=== PATIENT | female | born 2005 | race Caucasian/White ===

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

== ENCOUNTER → 2024-01-04 11:51 | Outpatient (BNVA) | payer BC, MEDICAID, SELFPAY | PROVIDERS: PCP Family Medicine; Visit Provider Nurse Practitioner Family | DX: Z34.90 Encounter for supervision of normal pregnancy, unspecified, unspecified trimester (principal); Z3A.00 Weeks of gestation of pregnancy not specified; R30.0 Dysuria | CPT/HCPCS: 81003; 81025; 87086 ==

== ENCOUNTER → 2024-01-29 13:10 | Outpatient (BNVA) | payer BC, MEDICAID, SELFPAY | PROVIDERS: PCP Family Medicine; Visit Provider Nurse Practitioner Family | DX: K92.1 Melena (principal) | CPT/HCPCS: G0328 ==

== ENCOUNTER → 2024-02-26 14:32 | Outpatient (BNVA) | payer BC, MEDICAID, SELFPAY | PROVIDERS: PCP Family Medicine; Visit Provider Nurse Practitioner Family | DX: Z34.90 Encounter for supervision of normal pregnancy, unspecified, unspecified trimester (principal); Z32.01 Encounter for pregnancy test, result positive; Z3A.00 Weeks of gestation of pregnancy not specified | CPT/HCPCS: 81025; 84702; 85025 ==

== ENCOUNTER 2024-03-28 22:10 | Emergency (ER) | payer BC, MEDICAID, SELFPAY ==
[2024-03-28 22:16] VITALS: BP 111/77; PULSE 77; RESP 16; TEMP 36.7; O2SAT 98; BMI 19.5
--- NOTE | 2024-03-28 22:25 | W.ED.ABDPA2 ---
HPI - Abdominal Pain General: Chief Complaint: Abdominal Pain Stated Complaint: 8 wks Preg ABD Pain Time Seen by Provider: 03/28/24 22:19 History of Present Illness: 19-year-old female comes in today with complaints of abdominal pain mainly in the left pelvic region. Patient believes that she is approximately 8 weeks with her last period being at 21 January. Patient is [address] 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 Patient has a 1-year-old at home. Patient has a history of anemia. Patient denies any bleeding or abnormal vaginal discharge. Related Data Previous Rx's Medication Instructions Recorded cetirizine 10 mg tablet (Zyrtec) 10 mg PO DAILY #90 tabs 01/04/24 sertraline 100 mg tablet 100 mg PO DAILY #30 tabs 01/04/24 vitamin#30 30 mg iron-10 1 cap PO DAILY #100 caps 02/26/24 mg iron-folic acid 1 mg-omg3 capsule Allergies Allergy/AdvReac Type Severity Reaction Status Date / Time brompheniramine Allergy ALGY-Rash Verified 01/04/24 10:39 [From Dimetapp (brompheniramine-PPA)] loratadine Allergy rash Verified 01/04/24 10:39 Penicillins Allergy rash--has Verified 01/04/24 10:39 never taken Keflex phenylpropanolamine Allergy ALGY-Rash Verified 01/04/24 10:39 [From Dimetapp (brompheniramine-PPA)] candy dye Allergy Mild ALGY-Hives Uncoded 01/04/24 10:39 Review of Systems General: Reports: 10 or more systems reviewed and unremarkable except in HPI and below : Reports: pelvic pain PFSH ED PFSH: Medical History Bicornuate uterus Miscarriage No pertinent past medical history Denies diabetes, asthma, hypertension, seizures, DVT/PE PCP: Dr. Abdi Irritable bowel syndrome (IBS) (~2018) constipation--not on any medication controlled with diet Iron deficiency anemia was placed on iron during her --delivered August; stopped Surgical History S/P laparoscopic appendectomy (11/13/20) 10/2020--lapar[place] [facility] [place] History Grandmother Diabetes maternal Grandfather Diabetes maternal Denies family history of Colon cancer Ovarian cancer Heart disease Hyperlipidemia Breast cancer Thyroid disease Stroke Social History Smoking and tobacco/nicotine status: never used tobacco/nicotine Second hand smoke exposure: No Alcohol intake: never Substance/Drug Use: never Lives independently: No Household members: family Marital status: Life Partner Number of children: 1 Current occupational status: employed Do you think of yourself as: Straight/Heterosexual Current gender identity: Female Special carlos needs: No Physical Exam Const: COMMON NORMALS: alert HENMT: COMMON NORMALS: normocephalic HEAD & SCALP: normocephalic THROAT: posterior oropharynx normal Neck/C-Spine: COMMON NORMALS: full ROM Resp: COMMON NORMALS: normal respiratory effort Cardio: COMMON NORMALS: regular rate RATE: regular rate GI: COMMON NORMALS: non-tender Back/Pelvis: COMMON NORMALS: thoracic and lumbar spine normal to inspection Extremity: COMMON NORMALS: no pedal edema Neuro: SENSORIUM/ORIENTATION: Yes alert Skin: COMMON NORMALS: turgor normal GENERAL SKIN EXAM: turgor normal Course Vital Signs: Vital signs: Vital Signs Temperature 98.1 F 03/28/24 22:16 Pulse Rate 70 03/29/24 00:10 Respiratory Rate 16 03/28/24 22:16 Blood Pressure 105/63 03/29/24 00:10 Pulse Oximetry 100 03/29/24 00:10 Oxygen Delivery Me thod Room Air 03/29/24 00:10 MDM - Abdominal Pain Medical Decision Making 19-year-old female comes in today for pelvic pain on the left side and her first trimester of . Patient's. Was at 21 January. Patient has a history of anemia. Abdomen soft nontender. Bowel sounds are active. Vital signs are normal. Differential diagnosis includes not limited to ovarian cyst, urinary tract infection, threatened miscarriage, subchorionic hemorrhage. CBC and CMP were unremarkable. hCG was 193,000. Urinalysis was clean. Ultrasound noted a viable fetus with a heart rate of 157. No obvious abnormalities were noted. Reviewed exam with patient with recommendation for treatment and follow-up. Patient reported understanding. Lab Data 03/28/24 22:28 03/28/24 22: Labs/Radiology: Laboratory Results WBC 11.17 10^3/uL (4.5-13.0) 03/28/24: RBC 4.89 10^6/uL (3.85-5.65) 03/28/24 22: Hgb 13.00 g/dL (12.4-14.8) 03/28/24 22: Hct 41.0 % (36-47) 03/28/24 22: MCV 83.8 fl (85-98) L 03/28/24 22: MCH 26.6 pg (27-33) L 03/28/24: MCHC 31.7 g/dL (30-55) 03/28/24: RDW 15.0 % (12.1-15.1) 03/28/24: Plt Count 223 10^3/cmm (157-399) 03/28/24: MPV 11.8 fL (7.4-10.4) H 03/28/24 22: Neut % (Auto) 73.7 % 03/28/24 22: Lymph % (Auto) 19.9 % 03/28/24 22: Republic % (Auto) 5.4 % 03/28/24: Eos % (Auto) 0.4 % 03/28/24: Baso % (Auto) 0.2 % 03/28/24: Neut # (Auto) 8.23 10^3/uL (1.8-8.0) H 03/28/24: Lymph # (Auto) 2.2 10^3/uL (1.5-6.5) 03/28/24 22: Republic # (Auto) 0.6 10^3/uL (0.2-0.9) 03/28/24: Eos # (Auto) 0.1 10^3/uL (0.0-0.8) 03/28/24: Baso # (Auto) 0.0 10^3/uL (0.0-0.1) 03/28/24: Nucleated RBC % (auto) 0 % 09/05/24 22:28 Nucleated RBCs # 0.0 /100WBC 03/28/24 22:28 Sodium 136 mmol/L (136-145) 03/28/24 22:28 Potassium 4.0 mmol/L (3.5-5.1) 03/28/24 22:28 Chloride 102 mmol/L (98-107) 03/28/24 22:28 Carbon Dioxide 20 mmol/L (22-29) L 03/28/24 22:28 Anion Gap 18.0 (5-19) 03/28/24 22:28 BUN 10 mg/dL (6-20) 03/28/24 22:28 Creatinine 0.5 mg/dL (0.5-0.9) 03/28/24 22:28 GFR Calculation 157.3 mL/min (90-130) H 03/28/24 22:28 Glucose 83 mg/dL (65-115) 03/28/24 22:28 Calculated Osmolality 280 mOsm/kg (285-295) L 03/28/24 22:28 Calcium 9.5 mg/dL (8.5-10.5) 03/28/24 22:28 Total Bilirubin 0.2 mg/dL (0.15-1.2) 03/28/24 22:28 AST 21 U/L (0-32) 03/28/24 22:28 ALT 12 U/L (0-33) 03/28/24 22:28 Alkaline Phosphatase 69 U/L (35-105) 03/28/24 22:28 Total Protein 7.9 g/dL (6.6-8.7) 03/28/24 22:28 Albumin 4.8 g/dL (3.5-5.2) 03/28/24 22:28 Globulin 3.1 g/dL (1.3-4.6) 03/28/24 22:28 Lipase 24 U/L (13-60) 03/28/24 22:28 Ser , Semi-Qnt 984823.00 mIU/mL 03/28/24 22:28 Urine Color Yellow (Yellow) 03/28/24 22:29 Urine Appearance Clear (CLEAR) 03/28/24 22:29 Urine pH 6.5 (5-7) 03/28/24 22:29 Ur Specific Carson 1.009 (1.005-1.030) 03/28/24 22:29 Urine Protein Negative (Negative) 03/28/24 22:29 Urine Glucose (UA) Negative (Normal) 03/28/24 22:29 Urine Ketones Negative (Negative) 03/28/24 22:29 Urine Blood Negative (Negative) 03/28/24 22:29 Urine Nitrate Negative (Negative) 03/28/24 22:29 Urine Bilirubin Negative (Negative) 03/28/24 22:29 Urine Urobilinogen 0.2 mg/dL (Negative) 03/28/24 22:29 Ur Leukocyte Esterase Negative (Negative) 03/28/24 22:29 Amorphous Sediment Not Reportable 03/28/24 22:29 XR interpretation done by ED provider, pending radiology final review Discharge Plan Discharge Condition: Stable Prescriptions: No Action PNV #[id number] 30 mg iron-10 mg iron-1 mg capsule 1 cap PO DAILY Qty: 100 4RF sertraline 100 mg tablet 100 mg PO DAILY Qty: 30 11RF cetirizine [Zyrtec] 10 mg tablet 10 mg PO DAILY Qty: 90 4RF Referrals: Natalia Abdi MD [Primary Care Provider] - Coding Level of Care Code ED Machine Straw Hat Presser for Minal Cox
--- NOTE | 2024-03-28 22:30 | USR_ITS ---
PROCEDURE INFORMATION: Exam: US First Trimester, Transabdominal and US , Transvaginal Exam date and time: 03/28/2024 11:30 PM Age: 19 years old Clinical indication: complicated by abdominal or pelvic pain; Left lower quadrant; First trimester (<14 weeks 0 days); Gestational age or lmp: 8w 1d by ev; ; Patient HX: G5-p1-a3-l1 presenting with left adnexal pain, no vaginal bleeding. ; Additional info: Left inguinal pain, 8 weeks LABS AND CLINICAL REPORTS: Choriogonadotropin in serum (Serum HCG): 623534 mIU/mL Last menstrual period start date: 01/26/2024 Gestational age (Established): 8 w 6 d Estimated due date (Established): 11/01/2024 TECHNIQUE: Imaging protocol: Real-time transabdominal obstetrical ultrasound of the maternal pelvis and a first trimester , less than 14 weeks 0 days, with image documentation. Transvaginal imaging was used for better evaluation of the fetus, adnexa, and/or cervix. COMPARISON: US OB >= 14 weeks fetus [id number] 04/15/2022 12:08 PM FINDINGS: GESTATION: Gestation: Intrauterine gestation is visualized. pole is visualized. Yolk sac is visualized. Embryonic/ heart rate: 157 bpm Extra-embryonic membranes/Placenta: Unremarkable. No subchorionic bleed. Amniotic/Chorionic fluid: Amniotic and extra-amniotic fluid are normal for gestational age. BIOMETRY: Gestational age (AUA): 8 w 1 d Estimated due date (AUA): 11/06/2024 [place] rump length (CRL): 17.2 mm. EGA (CRL) is 8 w 1 d MATERNAL: Uterus: Uterus measures 10.88 cm x 6.75 cm x 6.54 cm. Region of myometrial heterogeneity/microcystic spaces adjacent to the gestational sac seen on 1 image (series 1, image 280). Cervix: Unremarkable. Endocervical canal is closed. Right ovary/adnexa: Right ovary measures 3.2 cm x 2.8 cm x 1.4 cm. Right ovarian volume is 6.9 mL. Probable corpus luteum. Left ovary/adnexa: Left ovary measures 2.2 cm x 2.5 cm x 1.5 cm. Left ovarian volume is 4.4 mL. Intraperitoneal space: No intraperitoneal free fluid. US/US OB <= 14 weeks fetus [id number] IMPRESSION: 1. Single living intrauterine at 8 weeks and 1 day by ultrasound. 2. Incompletely imaged and possible region of myometrial heterogeneity/microcystic spaces adjacent to the gestational sac. This is of unclear clinical significance. Attention on follow-up exam.
[2024-03-28 22:33] LABS: Basophils % 0.2 %; Eosinophils # 0.1 10^3/uL (0.0-0.8); Eosinophils % 0.4 %; Lymphocytes # 2.2 10^3/uL (1.5-6.5); Lymphocytes % 19.9 %; Mean Corpuscular HGB Conc 31.7 g/dL (30-55); Mean Corpuscular Hemoglobin 26.6 pg (27-33); Mean Corpuscular Volume 83.8 fl (85-98); Mean Platelet Volume 11.8 fL (7.4-10.4); Monocytes # 0.6 10^3/uL (0.2-0.9); Monocytes % 5.4 %; Neutrophils # 8.23 10^3/uL (1.8-8.0); Neutrophils % 73.7 %; Nucleated Red Blood Cells % 0 %; Platelet Count 223 10^3/cmm (157-399); Red Blood Count 4.89 10^6/uL (3.85-5.65); White Blood Count 11.17 10^3/uL (4.5-13.0)
[2024-03-28 22:36] LABS: Bilirubin Urine Negative (Negative); Blood Urine Negative (Negative); Charge for UA Resulting for Rev; Glucose Urine UA Negative (Normal); Ketones Urine Negative (Negative); Leukocyte Esterase Urine Negative (Negative); Nitrate Urine Negative (Negative); Protein Urine Negative (Negative); Specific Gravity, Urine 1.009 (1.005-1.030); Urine Appearance Clear (CLEAR); Urine Color Yellow (Yellow); Urobilinogen Urine 0.2 mg/dL (Negative); pH Urine 6.5 (5-7)
[2024-03-28 22:42] VITALS: BP 109/61; PULSE 83; O2SAT 100
[2024-03-28 23:05] LABS: Alanine Aminotransferase 12 U/L (0-33); Albumin Level 4.8 g/dL (3.5-5.2); Alkaline Phosphatase 69 U/L (35-105); Blood Urea Nitrogen 10 mg/dL (6-20); Calcium 9.5 mg/dL (8.5-10.5); Carbon Dioxide 20 mmol/L (22-29); Chloride 102 mmol/L (98-107); Creatinine Clr Calc Pharmacy 145.6277; Globulin 3.1 g/dL (1.3-4.6); Glomerular Filtration Rate 157.3 mL/min (90-130); Glucose 83 mg/dL (65-115); Lipase 24 U/L (13-60); Osmolality Calculated 280 mOsm/kg (285-295); Sodium 136 mmol/L (136-145); Total Bilirubin 0.2 mg/dL (0.15-1.2); Total Protein 7.9 g/dL (6.6-8.7)
[2024-03-28 23:11] LABS: Aspartate Amino Transferase 21 U/L (0-32)
[2024-03-28 23:27] VITALS: BP 105/68; PULSE 73; O2SAT 100
[2024-03-29 00:10] VITALS: BP 105/63; PULSE 70; O2SAT 100
[2024-03-29 00:23] VITALS: BP 107/72; PULSE 68; O2SAT 100
== END 2024-03-29 00:27 | disposition home or self-care (01) ==
PROVIDERS: Emergency Provider Nurse Practitioner Family; PCP Family Medicine
DX: R10.2 Pelvic and perineal pain (principal)
CPT/HCPCS: 76801; 80053; 81003; 81015; 83690; 84702; 85025; 99284

== ENCOUNTER 2024-05-13 08:40 | Outpatient (CLI) | payer BC, MEDICAID, SELFPAY ==
--- NOTE | 2024-05-13 08:44 | USR_ITS ---
PROCEDURE INFORMATION: Exam: US , Limited Exam date and time: 05/13/2024 8:51 AM Age: 19 years old Clinical indication: Screening exam; Routine US, uterus; Additional info: ? Myometrial change LABS AND CLINICAL REPORTS: Gestational age (Established): 15 w 0 d Estimated due date (Established): 11/04/2024 TECHNIQUE: Imaging protocol: Real-time ultrasound of the maternal uterus with image documentation. Exam focused on the clinical indication. COMPARISON: US OB <= 14 weeks fetus [id number] 03/28/2024 11:30 PM FINDINGS: Gestation: Single live intrauterine gestation. heart rate: 144 bpm. presentation and position: Vertex. Placenta: Anterior. MATERNAL: Cervix: Unremarkable closed cervix measuring 3.8 cm in length. US/US OB limited [id number] IMPRESSION: Single live intrauterine gestation.
== END 2024-05-13 08:41 | disposition home or self-care (01) ==
LOC: RAD 08:41
PROVIDERS: PCP Family Medicine; Visit Provider Family Medicine
DX: O28.3 Abnormal ultrasonic finding on antenatal screening of mother (principal)
CPT/HCPCS: 76815

== ENCOUNTER → 2024-06-03 14:56 | Outpatient (BNVA) | payer BC, MEDICAID, SELFPAY | PROVIDERS: PCP Nurse Practitioner Family; Visit Provider Nurse Practitioner Family | DX: R50.9 Fever, unspecified (principal) | CPT/HCPCS: 87400; 87426 ==

== ENCOUNTER 2024-06-17 14:04 | Outpatient (CLI) | payer BC, MEDICAID, SELFPAY ==
--- NOTE | 2024-06-17 14:08 | USR_ITS ---
PROCEDURE INFORMATION: Exam: US After First Trimester, Transabdominal Exam date and time: 06/17/2024 2:15 PM Age: 19 years old Clinical indication: Screening exam; Routine US, uterus; Additional info: Anatomy check/second trimester TECHNIQUE: Imaging protocol: Real-time transabdominal obstetrical ultrasound of the maternal pelvis and a second or third trimester with image documentation. COMPARISON: US OB limited [id number] 05/13/2024 8:51 AM FINDINGS: Gestation: Single live intrauterine gestation. heart rate: 150 bpm. presentation and position: Transverse lie. Restaging images suggest Placenta: Unremarkable. No subchorionic bleed. Placenta is anterior. Amniotic fluid (Qualitative): Amniotic fluid is normal for gestational age. Amniotic fluid index: 13.67 cm. ANATOMY: midline falx: Normal cerebellum: Normal lateral ventricles: Normal cisterna magna: Normal choroid plexus: Normal face: Normal heart four-chamber view, heart size and position: Normal heart right ventricular outflow tract: Normal heart left ventricular outflow tract: Normal diaphragm: Normal kidneys: Normal stomach: Normal urinary bladder: Normal spine: No abnormality identified in the partially visualized spine Umbilical cord and insertion: Normal. Normal 3 vessel cord upper limbs: No abnormality identified lower limbs: No abnormality identified BIOMETRY: Gestational age (AUA): 19 weeks 2 days Estimated due date (AUA): 11/08/2024 Estimated weight: 321.63 g. EFW by AC, BPD, FL, HC, [place] 1985, 41% percentile Biparietal diameter (BPD): 4.39 cm. EGA (BPD) is 19 w 2 d. 21 % percentile Head circumference (HC): 17.17 cm. EGA (HC) is 19 w 5 d. 30.4 % percentile Abdominal circumference (AC): 14.7 cm. EGA (AC) is 20 w 0 d. 43.9 % percentile Femur length (FL): 3.2 cm. EGA (FL) is 20 w 0 d. 40.8 % percentile HC/AC: 1.17. (Normal range: 1.08 - 1.26) FL/HC: 18.64. (Normal range: 16.4 - 18.94) FL/BPD: 72.89 FL/AC: 21.77 MATERNAL: Uterus: Unremarkable. Cervix: Unremarkable. Cervix is closed. Right ovary/adnexa: Obscured by lack of adequate acoustic window. Left ovary/adnexa: Obscured by lack of adequate acoustic window. Intraperitoneal space: No intraperitoneal free fluid. US/US OB >= 14 weeks fetus [id number] IMPRESSION: Single live intrauterine gestation with estimated age of 19 weeks 3 days and weight of 321.63 g
== END 2024-06-17 14:05 | disposition home or self-care (01) ==
LOC: RAD 14:05
PROVIDERS: PCP Nurse Practitioner Family; Visit Provider Family Medicine
DX: Z34.82 Encounter for supervision of other normal pregnancy, second trimester (principal)
CPT/HCPCS: 76805

== ENCOUNTER 2024-07-12 21:19 | Emergency (ER) | payer BC, MEDICAID, SELFPAY ==
--- NOTE | 2024-07-12 21:22 | W.ED.GENADLT ---
HPI - General Adult General: Chief complaint: Extremity Injury, Lower Stated complaint: LEG PAIN Time Seen by Provider: 07/12/24 21:22 History of Present Illness: 19-year-old female presents to the emergency room with complaint of leg pain. Patient presents by EMS. She has not had any chest pain or shortness of breath she previously has had blood clots. She has not had any swelling in her legs she has been on Lovenox for the last 8 days. She is currently . She had called her OB doctor and the nurse at the doctor's office advised her to come to the emergency room. No shortness of breath no chest pain. Reviewing her records she did previously have a PE with no DVT at that time choosing using hormonal control just thought to be the precipitating factor. Associated symptoms: Deny chest pain, dyspnea or rash Related Data Previous Rx's Medication Instructions Recorded cetirizine 10 mg tablet (Zyrtec) 10 mg PO DAILY #90 tabs 01/04/24 sertraline 100 mg tablet 100 mg PO DAILY #30 tabs 01/04/24 vitamin#30 30 mg iron-10 1 cap PO DAILY #100 caps 02/26/24 mg iron-folic acid 1 mg-omg3 capsule promethazine 12.5 mg tablet 12.5 mg PO TID PRN nausea and 06/03/24 vomiting #10 tabs Allergies Allergy/AdvReac Type Severity Reaction Status Date / Time brompheniramine Allergy ALGY-Rash Verified 01/04/24 10:39 [From Dimetapp (brompheniramine-PPA)] loratadine Allergy rash Verified 01/04/24 10:39 Penicillins Allergy rash--has Verified 01/04/24 10:39 never taken Keflex phenylpropanolamine Allergy ALGY-Rash Verified 01/04/24 10:39 [From Dimetapp (brompheniramine-PPA)] candy dye Allergy Mild ALGY-Hives Uncoded 01/04/24 10:39 Review of Systems Const: Denies: fever(s) or chills Card: Denies: chest pain Resp: Denies: dyspnea GI: Denies: abdominal pain : Denies: dysuria, urinary frequency or urinary urgency Musc: Denies: neck pain or back pain Skin/Breast: Denies: rash PFSH ED PFSH: Medical History Bicornuate uterus Miscarriage No pertinent past medical history Denies diabetes, asthma, hypertension, seizures, DVT/PE PCP: Dr. Abdi Irritable bowel syndrome (IBS) (~2018) constipation--not on any medication controlled with diet Iron deficiency anemia was placed on iron during her --delivered August; stopped Surgical History S/P laparoscopic appendectomy (11/13/20) 10/2020--[place] [facility] [place] History Grandmother Diabetes maternal Grandfather Diabetes maternal Denies family history of Colon cancer Ovarian cancer Heart disease Hyperlipidemia Breast cancer Thyroid disease Stroke Social History Smoking and tobacco/nicotine status: never used tobacco/nicotine Second hand smoke exposure: No Alcohol intake: never Substance/Drug Use: never Lives independently: No Household members: family Marital status: Life Partner Number of children: 1 Current occupational status: employed Do you think of yourself as: Straight/Heterosexual Current gender identity: Female Special carlos needs: No Physical Exam Const: COMMON NORMALS: no acute distress GENERAL APPEARANCE: cooperative and comfortable ORIENTATION/CONSCIOUSNESS: Yes awake, Yes oriented to person, Yes oriented to place and Yes oriented to time HENMT: COMMON NORMALS: normocephalic, atraumatic and hearing grossly normal bilaterally HEAD & SCALP: normocephalic and atraumatic Resp: COMMON NORMALS: normal respiratory effort, No retractions, No use of accessory muscles and clear to auscultation bilaterally AUSCULTATION: clear to auscultation bilaterally Cardio: COMMON NORMALS: regular rate, regular rhythm and No murmurs present (Cardio) RATE: regular rate RHYTHM: regular rhythm Extremity: COMMON NORMALS: normal to inspection, capillary refill normal, no clubbing, cyanosis or edema, no calf tenderness and no pedal edema Neuro: SENSORIUM/ORIENTATION: Yes oriented to person, Yes oriented to place and Yes oriented to time Skin: COMMON NORMALS: no rashes or lesions noted GENERAL SKIN EXAM: no rashes or lesions noted Course Vital Signs: Vital signs: Vital Signs Temperature 98 F 07/12/24 21:24 Pulse Rate 88 07/12/24 22:55 Respiratory Rate 20 H 07/12/24 21:24 Blood Pressure 130/75 07/12/24 22:55 Pulse Oximetry 99 07/12/24 22:55 MDM - General Adult Medical Decision Making Exam unremarkable laboratory test unremarkable patient is not hypoxic. No tachycardia. She is currently on Lovenox. No pain with palpation of the extremities Homans negative and there is no edema. Discharge home continue current treatment plans. Medical Records I reviewed the patient's medical records. Lab Data I reviewed the patient's lab results. 07/12/24 21:53 07/12/24 21:53 Laboratory Results WBC 8.99 10^3/uL (4.5-13.0) 07/12/24 21:53 RBC 3.90 10^6/uL (3.85-5.65) 07/12/24 21:53 Hgb 10.50 g/dL (12.4-14.8) L 07/12/24 21:53 Hct 33.0 % (36-47) L 07/12/24 21:53 MCV 84.6 fl (85-98) L 07/12/24 21:53 MCH 26.9 pg (27-33) L 07/12/24 21:53 MCHC 31.8 g/dL (30-55) 07/12/24 21:53 RDW 14.4 % (12.1-15.1) 07/12/24 21:53 Plt Count 200 10^3/cmm (157-399) 07/12/24 21:53 MPV 12.3 fL (7.4-10.4) H 07/12/24 21:53 Neut % (Auto) 76.7 % 07/12/24 21:53 Lymph % (Auto) 15.2 % 07/12/24 21:53 [place] % (Auto) 6.8 % 07/12/24 21:53 Eos % (Auto) 0.7 % 07/12/24 21:53 Baso % (Auto) 0.2 % 07/12/24 21:53 Neut # (Auto) 6.89 10^3/uL (1.8-8.0) 07/12/24 21:53 Lymph # (Auto) 1.4 10^3/uL (1.5-6.5) L 07/12/24 21:53 [place] # (Auto) 0.6 10^3/uL (0.2-0.9) 07/12/24 21:53 Eos # (Auto) 0.1 10^3/uL (0.0-0.8) 07/12/24 21:53 Baso # (Auto) 0.0 10^3/uL (0.0-0.1) 07/12/24 21:53 Nucleated RBC % (auto) 0 % 07/12/24 21:53 Nucleated RBCs # 0.0 /100WBC 07/12/24 21:53 Sodium 135 mmol/L (136-145) L 07/12/24 21:53 Potassium 3.9 mmol/L (3.5-5.1) 07/12/24 21:53 Chloride 105 mmol/L (98-107) 07/12/24 21:53 Carbon Dioxide 22 mmol/L (22-29) 07/12/24 21:53 Anion Gap 11.9 (5-19) 07/12/24 21:53 BUN 7 mg/dL (6-20) 07/12/24 21:53 Creatinine 0.5 mg/dL (0.5-0.9) 07/12/24 21:53 GFR Calculation 157.3 mL/min (90-130) H 07/12/24 21:53 Glucose 86 mg/dL (65-115) 07/12/24 21:53 Calculated Osmolality 277 mOsm/kg (285-295) L 07/12/24 21:53 Calcium 8.9 mg/dL (8.5-10.5) 07/12/24 21:53 Total Bilirubin 0.2 mg/dL (0.15-1.2) 07/12/24 21:53 AST 17 U/L (0-32) 07/12/24 21:53 ALT 8 U/L (0-33) 07/12/24 21:53 Alkaline Phosphatase 78 U/L (35-105) 07/12/24 21:53 Total Protein 6.8 g/dL (6.6-8.7) 07/12/24 21:53 Albumin 3.5 g/dL (3.5-5.2) 07/12/24 21:53 Globulin 3.3 g/dL (1.3-4.6) 07/12/24 21:53 No radiology studies performed this visit Discharge Plan Discharge Patient Disposition: Home Clinical Impression: Bilateral leg pain Condition: Stable Prescriptions: No Action PNV #[id number] 30 mg iron-10 mg iron-1 mg capsule 1 cap PO DAILY Qty: 100 4RF sertraline 100 mg tablet 100 mg PO DAILY Qty: 30 11RF cetirizine [Zyrtec] 10 mg tablet 10 mg PO DAILY Qty: 90 4RF promethazine 12.5 mg tablet 12.5 mg PO TID PRN (Reason: nausea and vomiting) Qty: 10 0RF Discharge Orders: Discharge ED (Routine); Ordered 07/12/24 Ordered By: Diogenes Johnston Referrals: Christina Grimes FNP [Primary Care Provider] - Discharge Diet: Usual diet Discharge Activity: Increase activity as tolerated Patient Instructions: Opioid Safety, Pain Management Activity Restrictions/Additional Instructions: Thank you for choosing [facility] for your healthcare needs today. It is very important that you follow up as instructed or that you return to the Emergency Department should you have concerns or if your condition changes or worsens in any way. You were seen in the emergency room with complaint of leg pain. Your exam was negative there is no sign of swelling no suggestion of DVT currently on Lovenox which is the treatment for DVT if you did have 1. Clinically there is no sign of 1 at this time recommend continuing your current treatments and follow-up with your primary care doctor. Stand Alone Forms: Work/School Release Coding Level of Care Code ED Chief Of Vital Statistics for Minal Cox
[2024-07-12 21:24] VITALS: BP 127/72; PULSE 84; RESP 20; TEMP 36.6; O2SAT 98; BMI 21.9
[2024-07-12 22:00] LABS: Basophils % 0.2 %; Eosinophils # 0.1 10^3/uL (0.0-0.8); Eosinophils % 0.7 %; Lymphocytes # 1.4 10^3/uL (1.5-6.5); Lymphocytes % 15.2 %; Mean Corpuscular HGB Conc 31.8 g/dL (30-55); Mean Corpuscular Hemoglobin 26.9 pg (27-33); Mean Corpuscular Volume 84.6 fl (85-98); Mean Platelet Volume 12.3 fL (7.4-10.4); Monocytes # 0.6 10^3/uL (0.2-0.9); Monocytes % 6.8 %; Neutrophils # 6.89 10^3/uL (1.8-8.0); Neutrophils % 76.7 %; Nucleated Red Blood Cells % 0 %; Platelet Count 200 10^3/cmm (157-399); Red Cell Distribution Width 14.4 % (12.1-15.1); White Blood Count 8.99 10^3/uL (4.5-13.0)
[2024-07-12 22:21] LABS: Alanine Aminotransferase 8 U/L (0-33); Albumin Level 3.5 g/dL (3.5-5.2); Alkaline Phosphatase 78 U/L (35-105); Anion Gap 11.9 (5-19); Aspartate Amino Transferase 17 U/L (0-32); Blood Urea Nitrogen 7 mg/dL (6-20); Calcium 8.9 mg/dL (8.5-10.5); Carbon Dioxide 22 mmol/L (22-29); Chloride 105 mmol/L (98-107); Creatinine Clr Calc Pharmacy 152.8243; Globulin 3.3 g/dL (1.3-4.6); Glomerular Filtration Rate 157.3 mL/min (90-130); Glucose 86 mg/dL (65-115); Osmolality Calculated 277 mOsm/kg (285-295); Potassium 3.9 mmol/L (3.5-5.1); Sodium 135 mmol/L (136-145); Total Bilirubin 0.2 mg/dL (0.15-1.2); Total Protein 6.8 g/dL (6.6-8.7)
[2024-07-12 22:55] VITALS: BP 130/75; PULSE 88; O2SAT 99
== END 2024-07-12 22:56 | disposition home or self-care (01) ==
PROVIDERS: Emergency Provider Family Medicine; PCP Nurse Practitioner Family
DX: M79.604 Pain in right leg (principal); M79.605 Pain in left leg
CPT/HCPCS: 36415; 80053; 85025; 99283

== ENCOUNTER 2024-08-18 23:15 | Outpatient (CLI) | payer BC, MEDICAID, SELFPAY ==
[2024-08-18 23:17] VITALS: BMI 23.6
[2024-08-18 23:19] VITALS: BP 116/72; PULSE 78
[2024-08-18 23:20] VITALS: TEMP 35.6
[2024-08-18 23:34] VITALS: BP 106/61; PULSE 84
[2024-08-18 23:49] VITALS: BP 106/66; PULSE 86
[2024-08-19 00:04] VITALS: BP 104/65; PULSE 102
[2024-08-19 00:19] VITALS: BP 110/72; PULSE 102
--- NOTE | 2024-08-19 00:24 | PC.NURSE ---
Patient reports that pain is about 3-4/10 and a 5/10 when it's at its worst but denies having any pain since she arrived at the hospital.
[2024-08-19 00:34] VITALS: BP 110/72; PULSE 98; RESP 16; O2SAT 99
== END 2024-08-19 00:36 | disposition home or self-care (01) ==
LOC: OPOB 23:15 → OBGYN 23:16
PROVIDERS: PCP Nurse Practitioner Family; Visit Provider Family Medicine
DX: O26.899 Other specified pregnancy related conditions, unspecified trimester (principal); Z3A.00 Weeks of gestation of pregnancy not specified; R10.9 Unspecified abdominal pain
CPT/HCPCS: 59025; 99211

== ENCOUNTER 2024-09-13 15:05 | Outpatient (CLI) | payer BC, MEDICAID, SELFPAY ==
[2024-09-13] VITALS (10 sets, daily range): BP systolic 101–125; BP diastolic 61–71; PULSE 99–141; BMI 23.2
== END 2024-09-13 17:43 | disposition home or self-care (01) ==
LOC: OPOB 15:10 → OBGYN 15:11 → OPOB 15:18
PROVIDERS: Absent Provider Family Medicine; Family Provider Family Medicine; PCP Nurse Practitioner Family; Visit Provider Family Medicine
DX: O26.899 Other specified pregnancy related conditions, unspecified trimester (principal); Z3A.00 Weeks of gestation of pregnancy not specified; R10.9 Unspecified abdominal pain; N89.8 Other specified noninflammatory disorders of vagina
CPT/HCPCS: 59025; 99211

== ENCOUNTER 2024-09-30 14:20 | Outpatient (CLI) | payer BC, MEDICAID, SELFPAY ==
[2024-09-30] VITALS (64 sets, daily range): BP systolic 93–125; BP diastolic 53–84; PULSE 74–141; RESP 16; O2SAT 94–100; BMI 23.9
[2024-09-30 15:34] LABS: Bilirubin Urine Negative (Negative); Blood Urine Negative (Negative); Glucose Urine UA Negative (Normal); Ketones Urine Negative (Negative); Leukocyte Esterase Urine 2+ (Negative); Nitrate Urine Negative (Negative); Protein Urine Negative (Negative); Specific Gravity, Urine 1.005 (1.005-1.030); Urine Appearance Cloudy (CLEAR); Urine Color Yellow (Yellow); Urobilinogen Urine 0.2 mg/dL (Negative)
[2024-09-30 15:39] LABS: Bacteria Urine 3+ /hpf; Hyaline Casts Urine 2.46 /lpf; RBC Urine 0-2 /hpf (0-2); WBC Urine 51-100 /hpf (0-5)
[2024-09-30] MEDS: acetaminophen 500 mg Tablet 1000 MG PO (15:40)
[2024-09-30 15:43] LABS: Add Urine Culture? Yes
[2024-09-30 16:24] LABS: Basophils % 0.2 %; Eosinophils # 0.1 10^3/uL (0.0-0.8); Eosinophils % 0.6 %; Hematocrit 29.2 % (36-47); Lymphocytes # 1.6 10^3/uL (1.5-6.5); Lymphocytes % 18.3 %; Mean Corpuscular HGB Conc 30.5 g/dL (30-55); Mean Corpuscular Hemoglobin 24.7 pg (27-33); Mean Corpuscular Volume 80.9 fl (85-98); Mean Platelet Volume 13.2 fL (7.4-10.4); Monocytes # 0.5 10^3/uL (0.2-0.9); Monocytes % 5.7 %; Neutrophils # 6.72 10^3/uL (1.8-8.0); Neutrophils % 74.8 %; Nucleated Red Blood Cells % 0 %; Platelet Count 174 10^3/cmm (157-399); Red Blood Count 3.61 10^6/uL (3.85-5.65); Red Cell Distribution Width 13.4 % (12.1-15.1); White Blood Count 8.98 10^3/uL (4.5-13.0)
[2024-09-30] MEDS: lactated ringers 1,000 ML 999 ML IV (16:24)
[2024-09-30 16:41] LABS: Slide Review Slide Review Perform
[2024-09-30 16:42] LABS: Alanine Aminotransferase 6 U/L (0-33); Albumin Level 3.4 g/dL (3.5-5.2); Alkaline Phosphatase 180 U/L (35-105); Aspartate Amino Transferase 17 U/L (0-32); Blood Urea Nitrogen 4 mg/dL (6-20); Calcium 8.8 mg/dL (8.5-10.5); Carbon Dioxide 22 mmol/L (22-29); Chloride 105 mmol/L (98-107); Creatinine Clr Calc Pharmacy 152.5138; Globulin 2.8 g/dL (1.3-4.6); Glomerular Filtration Rate 157.3 mL/min (90-130); Glucose 73 mg/dL (65-115); Osmolality Calculated 279 mOsm/kg (285-295); Sodium 137 mmol/L (136-145); Total Bilirubin 0.2 mg/dL (0.15-1.2); Total Protein 6.2 g/dL (6.6-8.7)
[2024-09-30 16:49] LABS: Anion Gap 13.8 (5-19); Potassium 3.8 mmol/L (3.5-5.1)
--- NOTE | 2024-09-30 17:58 | PM.OBTRLD ---
OB L&D Triage Visit Information: Date of evaluation: 10/02/24 Comments/Additional reason(s) for visit: 19yo at 35w0d presenting for complaints of abdominal pain/contractions and headache. Reports abdominal pain started 2 days ago and has been both constant in the lower abdomen and intermittently worsening. States she took it easy yesterday evening and the pain went away but then came back this morning. She denies LOF, vaginal bleeding, and reports good movement. She reports for headache she had tried tylenol but did not improve significantly. Denies RUQ pain, LE edema. Denies dyspnea, chest pain, palpitations. Denies change in vaginal discharge but does report some sensitivity to wiping. Denies dysuria. Not a great historian as there is somewhat inconsistent report given to nursing versus myself. Evaluation: station: -3 Laboratory results: Laboratory Tests 09/30/24 09/30/24 09/30/24 14:55 16:07 16:22 WBC 8.98 RBC 3.61 L Hgb 8.90 L Hct 29.2 L MCV 80.9 L MCH 24.7 L MCHC 30.5 RDW 13.4 Plt Count 174 MPV 13.2 H Neut % (Auto) 74.8 Lymph % (Auto) 18.3 [place] % (Auto) 5.7 Eos % (Auto) 0.6 Baso % (Auto) 0.2 Neut # (Auto) 6.72 Lymph # (Auto) 1.6 [place] # (Auto) 0.5 Eos # (Auto) 0.1 Baso # (Auto) 0.0 Nucleated RBC % (a uto) 0 Nucleated RBCs # 0.0 PT Cancelled INR Cancelled APTT Cancelled Fibrinogen Cancelled Fibrin Degrad Prod ucts Cancelled D-Dimer Cancelled Sodium 137 Potassium 3.8 Chloride 105 Carbon Dioxide 22 Anion Gap 13.8 BUN 4 L Creatinine 0.5 GFR Calculation 157.3 H Glucose 73 Calculated Osmolal ity 279 L Calcium 8.8 Total Bilirubin 0.2 AST 17 ALT 6 Alkaline Phosphata se 180 H Total Protein 6.2 L Albumin 3.4 L Globulin 2.8 Urine Color Yellow Urine Appearance Cloudy A Urine pH 7.0 Ur Specific Gravit y 1.005 Urine Protein Negative Urine Glucose (UA) Negative Urine Ketones Negative Urine Blood Negative Urine Nitrate Negative Urine Bilirubin Negative Urine Urobilinogen 0.2 Ur Leukocyte Neeta ase 2+ A Urine RBC 0-2 Urine WBC 51-100 H Ur Squamous Epith Cells 11-20 H Amorphous Sediment Not Reportable Urine Bacteria 3+ H Hyaline Casts 2.46 Vital signs: Vital Signs - 24 hr 09/30/24 14:32 09/30/24 14:47 09/30/24 14:49 Pulse Rate 106 H 125 H 111 H Blood Pressure 123/84 112/70 Pulse Oximetry 100 09/30/24 14:54 09/30/24 14:59 09/30/24 14:59 Pulse Rate 113 H 141 H Blood Pressure Pulse Oximetry 100 100 09/30/24 15:02 09/30/24 15:02 09/30/24 15:04 Pulse Rate 137 H Blood Pressure 115/75 Pulse Oximetry 100 09/30/24 15:04 09/30/24 15:09 09/30/24 15:09 Pulse Rate 99 137 H Blood Pressure Pulse Oximetry 100 09/30/24 15:14 09/30/24 15:14 09/30/24 15:17 Pulse Rate 122 H Blood Pressure 110/70 Pulse Oximetry 100 09/30/24 15:17 09/30/24 15:19 09/30/24 15:19 Pulse Rate 137 H 110 H Blood Pressure Pulse Oximetry 100 09/30/24 15:24 09/30/24 15:24 09/30/24 15:29 Pulse Rate 127 H Blood Pressure Pulse Oximetry 100 100 09/30/24 15:29 09/30/24 15:32 09/30/24 15:32 Pulse Rate 118 H 104 H Blood Pressure 108/68 Pulse Oximetry 09/30/24 15:34 09/30/24 15:34 09/30/24 15:39 Pulse Rate 113 H Blood Pressure Pulse Oximetry 99 100 09/30/24 15:39 09/30/24 15:44 09/30/24 15:44 Pulse Rate 109 H 117 H Blood Pressure Pulse Oximetry 99 09/30/24 15:47 09/30/24 15:47 09/30/24 15:49 Pulse Rate 96 Blood Pressure 108/65 Pulse Oximetry 99 09/30/24 15:49 09/30/24 15:54 09/30/24 15:54 Pulse Rate 110 H 104 H Blood Pressure Pulse Oximetry 100 09/30/24 15:59 09/30/24 15:59 09/30/24 16:02 Pulse Rate 112 H Blood Pressure 102/66 Pulse Oximetry 100 09/30/24 16:02 09/30/24 16:04 09/30/24 16:04 Pulse Rate 107 H 116 H Blood Pressure Pulse Oximetry 100 09/30/24 16:09 09/30/24 16:09 09/30/24 16:14 Pulse Rate 113 H Blood Pressure Pulse Oximetry 100 99 09/30/24 16:14 09/30/24 16:17 09/30/24 16:17 Pulse Rate 89 76 Blood Pressure 104/65 Pulse Oximetry 09/30/24 16:19 09/30/24 16:19 09/30/24 16:24 Pulse Rate 111 H Blood Pressure Pulse Oximetry 100 100 09/30/24 16:24 09/30/24 16:29 09/30/24 16:29 Pulse Rate 92 88 Blood Pressure Pulse Oximetry 100 09/30/24 16:32 09/30/24 16:32 09/30/24 16:34 Pulse Rate 99 Blood Pressure 107/66 Pulse Oximetry 100 09/30/24 16:34 09/30/24 16:39 09/30/24 16:39 Pulse Rate 97 82 Blood Pressure Pulse Oximetry 100 09/30/24 16:44 09/30/24 16:44 09/30/24 16:49 Pulse Rate 87 Blood Pressure 103/59 Pulse Oximetry 100 09/30/24 16:49 09/30/24 16:49 09/30/24 16:49 Pulse Rate 97 85 Blood Pressure Pulse Oximetry 100 09/30/24 16:54 09/30/24 16:54 09/30/24 16:59 Pulse Rate 95 Blood Pressure Pulse Oximetry 100 100 09/30/24 16:59 09/30/24 17:02 09/30/24 17:02 Pulse Rate 96 87 Blood Pressure 102/62 Pulse Oximetry 09/30/24 17:04 09/30/24 17:04 09/30/24 17:09 Pulse Rate 87 Blood Pressure Pulse Oximetry 100 100 09/30/24 17:09 09/30/24 17:14 09/30/24 17:14 Pulse Rate 105 H 98 Blood Pressure Pulse Oximetry 100 09/30/24 17:19 09/30/24 17:19 09/30/24 17:19 Pulse Rate 107 H Blood Pressure 110/68 Pulse Oximetry 100 09/30/24 17:19 09/30/24 17:24 09/30/24 17:24 Pulse Rate 96 96 Blood Pressure Pulse Oximetry 100 09/30/24 17:27 09/30/24 17:27 09/30/24 17:29 Pulse Rate 88 Blood Pressure Pulse Oximetry 94 100 09/30/24 17:29 09/30/24 17:32 09/30/24 17:32 Pulse Rate 99 87 Blood Pressure 102/66 Pulse Oximetry 09/30/24 17:34 09/30/24 17:34 09/30/24 17:39 Pulse Rate 96 Blood Pressure Pulse Oximetry 100 100 09/30/24 17:39 09/30/24 17:44 09/30/24 17:44 Pulse Rate 92 91 Blood Pressure Pulse Oximetry 100 09/30/24 17:49 09/30/24 17:49 09/30/24 17:49 Pulse Rate 104 H Blood Pressure 125/60 Pulse Oximetry 100 09/30/24 17:54 09/30/24 17:54 Pulse Rate 114 H Blood Pressure Pulse Oximetry 100 Comments: NST reactive Gen: alert, oriented, NAD Lung: CTAB, no respiratory distress or increased work of breathing Cardiac: RRR, no murmurs, no LE edema- no calf pain or tenderness Abdomen: no rebound or guarding, mild TTP suprapubic, negative CVA tenderness bilaterally Final Diagnosis Final Diagnosis (1) Cystitis: Plan: Given 1 dose Rocephin here and will send prescription home for cephalexin. Status: Acute Code(s): N30.90 - Cystitis, unspecified without hematuria (2) contractions: Plan: Initially without contractions on toco however following initial SVE of 2.5/35/-3 noted contractions every 2 to 3 minutes consistently. She was then monitored over approximately 4-hour period without progressive dilation or effacement. She will be discharged home with strict return precautions and discussed light activity over and in the next 2 to 3 days. She will follow-up in clinic on , 10/03/2024. Status: Acute Code(s): O47.00 - False labor before 37 completed weeks of gestation, unspecified trimester (3) Anemia: Plan: Initially with some tachycardia but improved with fluid bolus. She will be continued on home iron supplementation. Headache improved with Tylenol administration here and her blood pressure has not been elevated throughout her monitoring time here. Status: Resolved Code(s): D64.9 - Anemia, unspecified Coding Level of Care Code Acute Code for Chg Fwd Diagnoses Cystitis N30.90 contractions O47.00 Anemia D64.9
[2024-09-30] MEDS: cefTRIAXone 1,000 mg SDV 1000 MG IVP (18:06)
[2024-09-30 20:49] LABS: Actim Prom Negative
== END 2024-09-30 21:22 | disposition home or self-care (01) ==
LOC: OPOB 14:21 → OBGYN 14:21
PROVIDERS: Family Provider Family Medicine; PCP Nurse Practitioner Family; Visit Provider Family Medicine
DX: O26.893 Other specified pregnancy related conditions, third trimester (principal); Z3A.35 35 weeks gestation of pregnancy; R10.9 Unspecified abdominal pain
CPT/HCPCS: 36415; 59025; 80053; 81001; 84112; 85025; 87081; 87086; 96374; 99211; J0696; J7120

== ENCOUNTER 2024-10-10 22:27 | Outpatient (CLI) | payer BC, MEDICAID, SELFPAY ==
[2024-10-10 22:41] VITALS: BMI 24.0
[2024-10-10 22:47] VITALS: BP 121/76; PULSE 92
[2024-10-10 23:02] VITALS: BP 109/64; PULSE 100
[2024-10-10 23:17] VITALS: BP 112/62; PULSE 79
[2024-10-10 23:32] VITALS: BP 115/68; PULSE 98
[2024-10-10 23:47] VITALS: BP 117/65; PULSE 80
[2024-10-11] VITALS (7 sets, daily range): BP systolic 92–122; BP diastolic 50–75; PULSE 83–113; RESP 16; TEMP 35.7; O2SAT 100
== END 2024-10-11 01:56 | disposition home or self-care (01) ==
LOC: OPOB 22:32 → OBGYN 22:33
PROVIDERS: Family Provider Family Medicine; PCP Nurse Practitioner Family; Visit Provider Family Medicine
DX: O26.899 Other specified pregnancy related conditions, unspecified trimester (principal); R10.9 Unspecified abdominal pain; Z3A.00 Weeks of gestation of pregnancy not specified
CPT/HCPCS: 59025; 99211

== ENCOUNTER 2024-10-17 21:25 | Outpatient (CLI) | payer BC, MEDICAID, SELFPAY ==
[2024-10-17 21:29] VITALS: BMI 24.0
[2024-10-17 21:39] VITALS: BP 113/76; PULSE 85
[2024-10-17 21:42] VITALS: RESP 16; TEMP 36.7; O2SAT 99
[2024-10-17 21:50] LABS: Nitrazine Paper, PH Negative
[2024-10-17 21:55] VITALS: BP 111/64; PULSE 78
[2024-10-17 22:04] VITALS: BP 111/64; PULSE 78; RESP 16; TEMP 36.7; O2SAT 99
== END 2024-10-17 22:09 | disposition home or self-care (01) ==
LOC: OPOB 21:27 → OBGYN 21:28
PROVIDERS: Family Provider Family Medicine; PCP Nurse Practitioner Family; Visit Provider Family Medicine
DX: O26.899 Other specified pregnancy related conditions, unspecified trimester (principal); Z3A.00 Weeks of gestation of pregnancy not specified; N89.8 Other specified noninflammatory disorders of vagina
CPT/HCPCS: 59025; 83986; 99211

== ENCOUNTER 2024-10-24 10:28 | Inpatient (IN) | payer BC, MEDICAID, SELFPAY ==
[2024-10-24] VITALS (81 sets, daily range): BP systolic 79–126; BP diastolic 49–79; PULSE 76–150; TEMP 36.2–36.4; O2SAT 94–100; BMI 24.3
[2024-10-24] MEDS: ceFAZolin 2,000 mg SDV 2000 MG IVP (11:01)
[2024-10-24] MEDS: dextrose 5%-lactated ringers 1,000 ML 125 ML IV ×2 (11:02→16:39)
[2024-10-24] MEDS: sodium chloride 0.9% 1,000 ML 999 ML IV (11:20)
[2024-10-24 11:23] LABS: Basophils % 0.2 %; Eosinophils % 0.2 %; Hematocrit 33.9 % (36-47); Lymphocytes # 1.4 10^3/uL (1.5-6.5); Lymphocytes % 11.1 %; Mean Corpuscular Hemoglobin 24.5 pg (27-33); Mean Corpuscular Volume 79.2 fl (85-98); Monocytes # 0.5 10^3/uL (0.2-0.9); Neutrophils # 10.23 10^3/uL (1.8-8.0); Neutrophils % 84.1 %; Nucleated Red Blood Cells % 0 %; Platelet Count 170 10^3/cmm (157-399); Red Blood Count 4.28 10^6/uL (3.85-5.65); Red Cell Distribution Width 15.1 % (12.1-15.1); White Blood Count 12.17 10^3/uL (4.5-13.0)
--- NOTE | 2024-10-24 11:45 | P.HP_ITS ---
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 Complains of regular contractions every 3-5 minutes since 7am. Denies LOF, vaginal bleeding. Good movement. PMHx includes multiple miscarriages and hx of PE. course complicated by anemia- on iron supplementation and contractions without labor. She has followed with MFM and was on lovenox for ppx until 38 weeks gestation. care was good and starting in first trimester. Present Details : 5 Para: 1 Labs Blood type OB HPI: O (+) positive Rubella: Non-Immune RPR: Negative GBS: Positive HBsAG: Negative Other Lab Information: Antibody screen negative GC/Chlamydia negative Initial H/H 12.7/39.9 Hep C ab negative HIV negative 1hr GTT failed, 3hr GTT passed Review of Systems 2 Const: Denies: fever(s), body aches or malaise Card: Denies: chest pain, palpitations, swelling of feet/ankles, dyspnea on exertion, orthopnea or leg pain with exertion Resp: Denies: dyspnea or wheezing GI: Denies: abdominal pain, nausea or vomiting Medications/Allergies Home Medications ?Medication ?Instructions ?Recorded ?Confirmed ?Last Taken ?Type sertraline 100 mg tablet 100 mg PO DAILY #30 tabs 10/17/24 10/16/24 21:00 Rx vitamin#30 30 mg iron-10 1 cap PO DAILY #100 caps 02/26/24 10/17/24 10/16/24 21:00 Rx mg iron-folic acid 1 mg-omg3 capsule enoxaparin 40 mg/0.4 mL 40 mg SUBCUT DAILY 08/18/24 10/17/24 10/16/24 21:00 History subcutaneous syringe Allergies Allergy/AdvReac Type Severity Reaction Status Date / Time brompheniramine (From Allergy ALGY-Rash Verified 10/17/24 21:45 Dimetapp (brompheniramine-PPA)) loratadine Allergy rash Verified 10/17/24 21:45 Penicillins Allergy rash--has Verified 10/17/24 21:45 never taken Keflex phenylpropanolamine (From Allergy ALGY-Rash Verified 10/17/24 21:45 Dimetapp (brompheniramine-PPA)) candy dye Allergy Mild ALGY-Hives Uncoded 10/17/24 21:45 PFSH 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 Abdi Irritable bowel syndrome (IBS) (~2018) constipation--not on any medication controlled with diet Iron deficiency anemia was placed on iron during her --delivered August; stopped Surgical History S/P laparoscopic appendectomy (11/13/20) 10/2020--lapar[place] [facility] [place] Family History Grandmother Diabetes maternal Grandfather Diabetes maternal Denies family history of Colon cancer Ovarian cancer Heart disease Hyperlipidemia Breast cancer Thyroid disease Stroke Social History Smoking and tobacco/nicotine status: never used tobacco/nicotine Second hand smoke exposure: No Alcohol intake: never Substance/Drug Use: never Lives independently: No Household members: family Marital status: Life Partner Number of children: 1 Current occupational status: employed Do you think of yourself as: Straight/Heterosexual Current gender identity: Female Special carlos needs: No Personal Safety: Do you feel safe at home: Yes Victim of physical abuse: No Victim of emotional abuse: No Victim of sexual abuse: No History History History 2 5 Term 1 0 Miscarriages/Ectopic 3 Living Children 1 Vitals/I&O/Wt Last Vital Signs Pulse 130 H 10/24/24 10:43 BP 112/71 10/24/24 10:43 Weight last 48 hrs Weight 133 lb Physical Exam 2 Const: COMMON NORMALS: no acute distress, no limitations, healthy appearing and alert Chest: COMMONS NORMALS: normal inspection of the chest Resp: COMMON NORMALS: normal respiratory effort, No use of accessory muscles and clear to auscultation bilaterally Cardio: COMMON NORMALS: no JVD, regular rate, regular rhythm, S1 normal heart sound present, S2 normal heart sound present and No murmurs present (Cardio) : OTHER: Gravid S=D Extremity: OTHER: No LE edema Skin: COMMON NORMALS: no rashes or lesions noted Data 10/24/24 11:00 Results Labs OB ([facility]): 2 Obstetrics US 05/13/24 Blood Type O Positive 10/24/24 Antibody Screen Negative 10/24/24 Hct 33.9 % (36-47) L 10/24/24 Hgb 10.50 g/dL (12.4-14.8) L 10/24/24 Rho(D) Type Rh positive 10/24/24 Plt Count 170 10^3/cmm (157-399) 10/24/24 A&P Assessment and plan (1) Uterine contractions: (2) Term : (3) History of pulmonary embolism: (4) Anemia: Plan 19yo at 38w3d presenting for labor. Admit for labor, routine CBC- she has been on iron supplementation for anemia GBS positive with penicillin allergy- has recently had cephalosporin without reaction- plan for cefazolin for GBS ppx May have epidural when desired, Fentanyl protocol prior Intermittent EFM as long as Category I and until epidural Hx of PE- has been following with MFM and stopped lovenox at 38 weeks- plan to restart PDMP PDMP Reviewed: Not Reviewed Attestations 2 Medical Necessity Statement*: Cyndee Rayo Lira's hospital stay will require greater than 2 midnights for labor and delivery and care. Coding Level of Care Code Acute Code for Chg Fwd Diagnoses Uterine contractions O47.9 Term Z34.90 History of pulmonary embolism Z86.711 Anemia D64.9
[2024-10-24] MEDS: ROPivacaine syringe 100 MG/50 ML SYRINGE 10 MG EPIDURAL ×2 (12:10→16:16)
--- NOTE | 2024-10-24 12:37 | ANES.PREANE2 ---
Pre-Anesthetic Assessment Height/Weight: Height 1.57 m Weight 60.328 kg Temp Pulse BP Pulse Ox O2 Del Method 97.3 F L 111 H 99/60 100 Room Air 10/24/24 12:26 10/24/24 12:35 10/24/24 12:35 10/24/24 12:33 10/24/24 10:45 Epidural Familial anesthetic complications: None Was Beta Kar taken within 24 hours: N/A Was Clonidine taken within 24 hours: N/A Social No alcohol and No tobacco Exam alert, oriented x 3, clear to auscultation bilaterally and regular rate & rhythm CV/HEM Hx PE, was taking lovenox 40 mg SC stopped 10/20 Anesthetic Plan ASA status: 2 Anesthesia: Regional (specify below) Risk of > 500 ml blood loss (7ml/kg in children): No Medications/Allergies Home Medications ?Medication ?Instructions ?Recorded ?Confirmed ?Last Taken ?Type sertraline 100 mg tablet 100 mg PO DAILY #30 tabs 01/04/24 10/17/24 10/16/24 21:00 Rx vitamin#30 30 mg iron-10 1 cap PO DAILY #100 caps 02/26/24 10/17/24 10/16/24 21:00 Rx mg iron-folic acid 1 mg-omg3 capsule enoxaparin 40 mg/0.4 mL 40 mg SUBCUT DAILY 08/18/24 10/17/24 10/16/24 21:00 History subcutaneous syringe Allergies Allergy/AdvReac Type Severity Reaction Status Date / Time brompheniramine (From Allergy ALGY-Rash Verified 10/17/24 21:45 Dimetapp (brompheniramine-PPA)) loratadine Allergy rash Verified 10/17/24 21:45 Penicillins Allergy rash--has Verified 10/17/24 21:45 never taken Keflex phenylpropanolamine (From Allergy ALGY-Rash Verified 10/17/24 21:45 Dimetapp (brompheniramine-PPA)) candy dye Allergy Mild ALGY-Hives Uncoded 10/17/24 21:45 Current Medications Generic Name Dose Route Start Last Admin Trade Name Freq PRN Reason Stop Dose Admin Dextrose/Lactated Ringer's 1,000 mls @ 125 mls/hr 10/24/24 10:45 10/24/24 11:02 Dextrose 5%-Lactated Ringers IV 125 mls/hr .Q8H PRATIK Administration Sodium Chloride 1,000 mls @ 999 mls/hr 10/24/24 11:07 10/24/24 11:20 Sodium Chloride 0.9% IV 999 mls/hr .Q1H1M PRN Administration See label comments PFSH Anesthesia Medical History Bicornuate uterus Miscarriage No pertinent past medical history Denies diabetes, asthma, hypertension, seizures, DVT/PE PCP: Dr. Abdi Irritable bowel syndrome (IBS) (~2018) constipation--not on any medication controlled with diet Iron deficiency anemia was placed on iron during her --delivered August; stopped Surgical History S/P laparoscopic appendectomy (11/13/20) 10/2020--laparoscopic [place]. Eastman [place] [facility] [place] Family History Grandmother Diabetes maternal Grandfather Diabetes maternal Denies family history of Colon cancer Ovarian cancer Heart disease Hyperlipidemia Breast cancer Thyroid disease Stroke Social History Smoking and tobacco/nicotine status: never used tobacco/nicotine Second hand smoke exposure: No Alcohol intake: never Substance/Drug Use: never Lives independently: No Household members: family Marital status: Life Partner Number of children: 1 Current occupational status: employed Do you think of yourself as: Straight/Heterosexual Current gender identity: Female Special carlos needs: No Female Reproductive History : 5 Data Anesthesia 10/24/24 11:00 Short CBC 10/24/24 Range/Units 11:00 WBC 12.17 (4.5-13.0) 10^3/uL Hgb 10.50 L (12.4-14.8) g/dL Hct 33.9 L (36-47) % MCV 79.2 L (85-98) fl Plt Count 170 (157-399) 10^3/cmm Neut % (Auto) 84.1 % Neut # (Auto) 10.23 H (1.8-8.0) 10^3/uL Blood Bank 10/24/24 10/24/24 11:00 11:42 Blood Type Cancelled O Positive Rho(D) Type Cancelled Rh positive Antibody Screen Cancelled Negative Cardiac Studies: Echocardiogram 06/14/23 Holter Monitor 06/21/23
--- NOTE | 2024-10-24 12:40 | ANES.PROC ---
Anesthesia Procedures Procedure/Date: 10/24/24 Epidural: Time Out Performed: Yes Consents Signed: Procedure Consent Consent: requested by attending/covering physician, from patient, from other, risks and benefits reviewed and patient agrees to proceed Lumbar Level: L3-L4 Epidural position: sitting Epidural procedure: sterile prep of area, 1% lidocaine to numb the area, 18 g needle, negative for paresthesia passed, neg for paresthesia, test dose given, 1.5% xylocaine 1:200k epi (5), 0.2% Ropivacaine bolus ml (5), placed PCEA, no systemic response, sterile dressing applied, L.U.D. no apparent complications and 0.2% Ropiavacaine @ mls/hr (10) Additional Comments: AMY at 4 cm, threaded to 10 cm
--- NOTE | 2024-10-24 14:22 | ANES.PROC ---
Anesthesia Procedures Procedure/Date: 10/24/24 Epidural: Time Out Performed: Yes Consents Signed: Procedure Consent Consent: requested by attending/covering physician, from patient, from other, risks and benefits reviewed and patient agrees to proceed Lumbar Level: L4-L5 Epidural position: sitting Epidural procedure: sterile prep of area, 1% lidocaine to numb the area, 18 g needle, negative for paresthesia passed, neg for paresthesia, test dose given, 1.5% xylocaine 1:200k epi (5), 0.2% Ropivacaine bolus ml, placed PCEA, no systemic response, sterile dressing applied, L.U.D. no apparent complications and 0.2% Ropiavacaine @ mls/hr (10) Additional Comments: Patient elected to replace current epidural after receiving bupivicaine 0.5% 10 cc with residual right sided pain. AMY at 4 cm, threaded to 10 cm
--- NOTE | 2024-10-24 14:37 | PC.NURSE ---
1400 1ST EPIDURAL REMOVED BY DR. JUDD WITH TIP INTACT.
[2024-10-24] MEDS: ceFAZolin 1,000 mg SDV 1000 MG IVP (18:32)
[2024-10-24] MEDS: acetaminophen 325 mg Tablet 650 MG PO (19:40)
[2024-10-24] MEDS: oxytocin 30 UNIT/500 ML BAG 600 UNIT IV (20:40)
--- NOTE | 2024-10-24 21:10 | P.PCNOB_ITS ---
Delivery Note: Date of delivery: October 24, 2024 Pre-delivery diagnoses: Term History of pulmonary embolism Anemia Post-delivery diagnoses: Term delivery of viable male Procedure: Spontaneous vaginal delivery Delivering Physician: Meaghan Avalos DO Estimated blood loss (mL): 150 Pre-Delivery Course: Admitted on 10/24/2024 with initial SVE of 4/70/-3. She progressed over 1 hour to 5/70/-3 and was admitted for labor. She then obtained epidural for anesthesia and gradually progressed to 9.5/80/-3 with SROM at approximately 2009. Delivery: Patient progressed to complete. Patient placed in lithotomy position. Patient pushed with adequate effort. Head delivered in OA position, no nuchal cord was present. Shoulders and rest of body delivered without difficulty with epidural anesthesia. Mouth and nares bulb suctioned. Cord clamped and cut after 1 minute delay. placed on maternal abdomen. Placenta spontaneously delivered and noted to be intact. Pitocin started. Fundus was noted to be firm with massage. The vagina and cervix were inspected and left first-degree laceration was noted. Repaired with 3-0 Vicryl. Fundus was again noted to be firm however with steady trickle bleeding. Lower uterine segment was swept free of clots and following noted fundus to be firm with minimal bleeding. Male born at 2034 with 9/9 weighing 6 pounds 15 ounces and measuring 19.5 inches in length, 13 inches head circumference, 12.75 inches chest circumference Placenta noted to be intact with centrally inserted umbilical cord and three- vessel cord. Complications: Maternal none Infant none History History History 5 Term 2 0 Miscarriages/Ectopic 3 Living Children 2 A&P Assessment and plan (1) Spontaneous vaginal delivery: PDMP PDMP Reviewed: Not Reviewed Coding Level of Care Code Acute Code for Chg Fwd Diagnoses Spontaneous vaginal delivery O80
[2024-10-24] MEDS: benzocaine-menthol 78 gm Canister 1 SPRAY TOPICAL (23:05)
[2024-10-25] MEDS: ibuprofen 800 mg tablet PO ×4 (00:05→20:59)
[2024-10-25 02:25] VITALS: BP 105/69; PULSE 91; RESP 16
[2024-10-25 04:25] VITALS: BP 102/58; PULSE 79; RESP 15
[2024-10-25] MEDS: enoxaparin 40 mg/0.4 mL Syringe SUBCUT (05:54)
[2024-10-25] MEDS: acetaminophen 325 mg Tablet 650 MG PO ×2 (05:57→13:03)
[2024-10-25 06:25] VITALS: BP 101/60; PULSE 86; RESP 16
--- NOTE | 2024-10-25 07:30 | P.PN_ITS ---
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 Bleeding is minimal. Tolerating normal diet. Has been ambulating without difficulty. Voiding without difficulty. No leg pain. Vitals/I&O/Wt Last Vital Signs Temp 97.9 F 10/25/24 20:59 Pulse 100 10/25/24 20:59 Resp 15 10/25/24 20:59 BP 108/71 10/25/24 20:59 Pulse Ox 98 10/25/24 20:59 O2 Del Method Room Air 10/25/24 20:59 10/25/24 10/25/24 10/26/24 14:59 22:59 06:59 Intake Total 1550 / 1550 Balance 1550 / 1550 Weight last 48 hrs Weight 133 lb Physical Exam 2 Const: COMMON NORMALS: no acute distress, no limitations, healthy appearing and alert Neck/C-Spine: COMMON NORMALS: no JVD Chest: COMMONS NORMALS: normal inspection of the chest Resp: COMMON NORMALS: normal respiratory effort, No use of accessory muscles and clear to auscultation bilaterally AUSCULTATION: clear to auscultation bilaterally Cardio: COMMON NORMALS: no JVD, regular rate, regular rhythm, S1 normal heart sound present, S2 normal heart sound present and No murmurs present (Cardio) RATE: regular rate RHYTHM: regular rhythm HEART SOUNDS: S1 normal heart sound present and S2 normal heart sound present : OTHER: Uterine fundus firm and at the umbilicus Extremity: OTHER: No LE edema Neuro: SENSORIUM/ORIENTATION: Yes alert Skin: COMMON NORMALS: no rashes or lesions noted GENERAL SKIN EXAM: no rashes or lesions noted Urinary Catheter Management: Wei: Cath Placed During This Visit: yes, but has since been removed by the nurse Reason for Continuing Indwelling Catheter: Decision to DC Catheter Urinary Catheter Date of Insertion: 10/24/24 Urinary Catheter Time of Insertion: 12:25 Date Urinary Catheter Removed: 10/24/24 Time Urinary Catheter Discontinued: 20:30 Data 10/25/24 10:47 A&P Assessment and plan (1) Spontaneous vaginal delivery: (2) History of pulmonary embolism: Plan PPD #1 s/p without complication. Lovenox restarted- bleeding has been minimal. Encourage ambulation, regular diet. CBC. Anticipate discharge home tomorrow. PDMP PDMP Reviewed: Not Reviewed Attestations 2 Medical Necessity Statement*: Cyndee Lira's hospital stay will require greater than 2 midnights for labor and delivery and care. Coding Level of Care Code Acute Code for Chg Fwd Diagnoses Spontaneous vaginal delivery O80 History of pulmonary embolism Z86.711
[2024-10-25] MEDS: ferrous sulfate EC 325 mg Tablet PO (09:15)
[2024-10-25] MEDS: docusate sodium 100 mg Capsule PO ×2 (09:15→20:59)
[2024-10-25] MEDS: PRENATAL VIT NO.130/IRON/FOLIC 1 EACH TABLET PO (09:15)
[2024-10-25 10:00] VITALS: BP 107/72; PULSE 73
[2024-10-25 12:01] LABS: Hematocrit 27.9 % (36-47); Mean Corpuscular HGB Conc 30.1 g/dL (30-55); Mean Corpuscular Volume 79.7 fl (85-98); Mean Platelet Volume 13.4 fL (7.4-10.4); Platelet Count 165 10^3/cmm (157-399); White Blood Count 13.54 10^3/uL (4.5-13.0)
--- NOTE | 2024-10-25 15:45 | ANE.PACU2 ---
Inpatient post-anesthesia follow up: Airway intact: Yes Vital signs: Temperature 97.9 F Pulse Rate 80 Respiratory Rate 15 Blood Pressure 128/72 Pulse Oximetry 98 Oxygen Delivery Me thod Room Air Oxygen Flow Rate Fraction of Inspir ed Oxygen Hydration adequate: Yes Nausea and vomiting: No Pain level: 1 Mental status: Baseline Epidural Start/End: Epidural Start Date: 10/24/24 Epidural Start Time: 12:10 Epidural End Date: 10/24/24 Epidural End Time: 14:37
[2024-10-25 16:00] VITALS: BP 114/76; PULSE 74; RESP 16; TEMP 36.9; O2SAT 98
[2024-10-25 20:59] VITALS: BP 108/71; PULSE 100; RESP 15; TEMP 36.6; O2SAT 98
[2024-10-26 03:19] VITALS: BP 100/58; PULSE 65
[2024-10-26] MEDS: ibuprofen 800 mg tablet PO (08:10)
[2024-10-26] MEDS: PRENATAL VIT NO.130/IRON/FOLIC 1 EACH TABLET PO (08:10)
[2024-10-26] MEDS: ferrous sulfate EC 325 mg Tablet PO (08:10)
[2024-10-26] MEDS: enoxaparin 40 mg/0.4 mL Syringe SUBCUT (08:10)
[2024-10-26] MEDS: docusate sodium 100 mg Capsule PO (08:10)
[2024-10-26] MEDS: sertraline 100 mg Tablet PO (08:10)
--- NOTE | 2024-10-26 09:16 | P.DS_ITS ---
Discharge Providers DIRECTOR BIOSTATISTICS Date of Admission: 10/24/24 10:28 Date of Discharge: 10/26/24 Attending Provider at Admission: Meaghan Avalos DO Attending Provider at Discharge: Meaghan vAalos DO Primary Care Provider: MANSI Christensen Diagnoses at Discharge Discharge Diagnosis (1) Spontaneous vaginal delivery: Status: Resolved (2) History of pulmonary embolism: Status: Acute Reason for Visit Reason for Visit: ctx Hospital Course Hospital Course Pre-Delivery Course: Admitted on 10/24/2024 with initial SVE of 4/70/-3. She progressed over 1 hour to 5/70/-3 and was admitted for labor. She then obtained epidural for anesthesia and gradually progressed to 9.5/80/-3 with SROM at approximately 2009. Delivery: Patient progressed to complete. Patient placed in lithotomy position. Patient pushed with adequate effort. Head delivered in OA position, no nuchal cord was present. Shoulders and rest of body delivered without difficulty with epidural anesthesia. Mouth and nares bulb suctioned. Cord clamped and cut after 1 minute delay. placed on maternal abdomen. Placenta spontaneously delivered and noted to be intact. Pitocin started. Fundus was noted to be firm with massage. The vagina and cervix were inspected and left first-degree laceration was noted. Repaired with 3-0 Vicryl. Fundus was again noted to be firm however with steady trickle bleeding. Lower uterine segment was swept free of clots and following noted fundus to be firm with minimal bleeding. Male born at 2034 with 9/9 weighing 6 pounds 15 ounces and measuri ng 19.5 inches in length, 13 inches head circumference, 12.75 inches chest circumference Placenta noted to be intact with centrally inserted umbilical cord and three- vessel cord. Complications: Maternal none none course: Patient underwent on 10/24/2024. course was unremarkable. Following delivery patient ambulated well, tolerated a normal diet without nausea or vomiting. Pain was well-controlled on PO medications, bottlefeeding, no leg/calf pain, no calf/leg swelling, normal urination, passing gas and normal bowel movements. Vaginal bleeding thin lochia and decreasing. labs significant hemoglobin of 8.4 and she is continued on iron supplementation. She was also restarted on her Lovenox prophylaxis due to history of a PE. Follow-up planned for 2 and 6 weeks . Warning signs for endometritis, pre- eclampsia, DVT/PE, mastitis were reviewed, discussed additional warning signs including increased vaginal bleeding, worsening abdominal pain. Pelvic rest and activity precautions reviewed as well. She is discharged on 10/26/2024 in stable condition. Information Peripartum Data: Infant Delivery Method: Vaginal Physical Exam Const: COMMON NORMALS: no acute distress, no limitations, healthy appearing and alert Neck/C-Spine: COMMON NORMALS: no JVD Chest: COMMONS NORMALS: normal inspection of the chest Resp: COMMON NORMALS: normal respiratory effort, No use of accessory muscles and clear to auscultation bilaterally AUSCULTATION: clear to auscultation bilaterally Cardio: COMMON NORMALS: no JVD, regular rate, regular rhythm, S1 normal heart sound present, S2 normal heart sound present and No murmurs present (Cardio) RATE: regular rate RHYTHM: regular rhythm HEART SOUNDS: S1 normal heart sound present and S2 normal heart sound present : OTHER: Uterine fundus firm and at the umbilicus Extremity: OTHER: No LE edema Neuro: SENSORIUM/ORIENTATION: Yes alert Skin: COMMON NORMALS: no rashes or lesions noted GENERAL SKIN EXAM: no rashes or lesions noted Urinary Catheter Management: Wei: Cath Placed During This Visit: yes, but has since been removed by the nurse Reason for Continuing Indwelling Catheter: Decision to DC Catheter Urinary Catheter Date of Insertion: 10/24/24 Urinary Catheter Time of Insertion: 12:25 Date Urinary Catheter Removed: 10/24/24 Time Urinary Catheter Discontinued: 20:30 History History History 5 Term 2 0 Miscarriages/Ectopic 3 Living Children 2 Discharge Data Studies Completed and Pending Laboratory Results WBC 13.54 10^3/uL (4.5-13.0) H 10/25/24 10:47 RBC 3.50 10^6/uL (3.85-5.65) L 10/25/24 10:47 Hgb 8.40 g/dL (12.4-14.8) L 10/25/24 10:47 Hct 27.9 % (36-47) L 10/25/24 10:47 MCV 79.7 fl (85-98) L 10/25/24 10:47 MCH 24.0 pg (27-33) L 10/25/24 10:47 MCHC 30.1 g/dL (30-55) 10/25/24 10:47 RDW 15.0 % (12.1-15.1) 10/25/24 10:47 Plt Count 165 10^3/cmm (157-399) 10/25/24 10:47 MPV 13.4 fL (7.4-10.4) H 10/25/24 10:47 Neut % (Auto) 84.1 % 10/24/24 11:00 Lymph % (Auto) 11.1 % 10/24/24 11:00 [place] % (Auto) 4.0 % 10/24/24 11:00 Eos % (Auto) 0.2 % 10/24/24 11:00 Baso % (Auto) 0.2 % 10/24/24 11:00 Neut # (Auto) 10.23 10^3/uL (1.8-8.0) H 10/24/24 11:00 Lymph # (Auto) 1.4 10^3/uL (1.5-6.5) L 10/24/24 11:00 [place] # (Auto) 0.5 10^3/uL (0.2-0.9) 10/24/24 11:00 Eos # (Auto) 0.0 10^3/uL (0.0-0.8) 10/24/24 11:00 Baso # (Auto) 0.0 10^3/uL (0.0-0.1) 10/24/24 11:00 Nucleated RBC % (auto) 0 % 10/24/24 11:00 Nucleated RBCs # 0.0 /100WBC 10/24/24 11:00 Blood Type O Positive 10/24/24 11:42 Rho(D) Type Rh positive 10/24/24 11:42 Antibody Screen Negative 10/24/24 11:42 Vitals Last Vital Signs Temp 97.9 F 10/25/24 20:59 Pulse 65 10/26/24 03:19 Resp 15 10/25/24 20:59 BP 100/58 10/26/24 03:19 Pulse Ox 98 10/25/24 20:59 O2 Del Method Room Air 10/26/24 03:19 Results Labs OB ([facility]): Obstetrics US 05/13/24 Blood Type O Positive 10/24/24 Antibody Screen Negative 10/24/24 Hct 27.9 % (36-47) L 10/25/24 Hgb 8.40 g/dL (12.4-14.8) L 10/25/24 Rho(D) Type Rh positive 10/24/24 Plt Count 165 10^3/cmm (157-399) 10/25/24 Discharge Plan Discharge Patient Disposition: Home Condition: Stable Prescriptions: New ferrous sulfate 325 mg (65 mg iron) Tablet,Delayed Release (Dr/Ec) 325 mg PO DAILY Qty: 90 0RF ibuprofen 800 mg Tablet 800 mg PO TID Qty: 90 0RF docusate sodium 100 mg Capsule 100 mg PO BID Qty: 60 0RF Continued PNV #90-voyk-ylgot acid-omega3 30 mg iron-10 mg iron-1 mg capsule 1 cap PO DAILY Qty: 100 4RF sertraline 100 mg tablet 100 mg PO DAILY Qty: 30 11RF enoxaparin 40 mg/0.4 mL syringe 40 mg SUBCUT DAILY Discharge Orders: Discharge Order (Routine); Ordered 10/26/24 Ordered By: Meaghan Avalos Referrals: Meaghan Avalos DO [Family Provider] - 11/07/24 8:30 am (6 WEEK IS SCHEDULED November @ 9:15 A.M IN [place]. BOTH APPOINMENTS ARE SCHEDULED FOR [place] OFFICE.) Discharge Diet: Usual diet Discharge Activity: Increase activity as tolerated Patient Instructions: Depression (DC), Opioid Safety (DC), Preeclampsia and Eclampsia After Delivery (GEN), Hemorrhage (DC), OB Discharge Report, OB Food/Drug Interaction Guide, OB Care at Home, Opioid Safety, OB Vaginal Deliveries, Abnormal Bleeding Activity Restrictions/Additional Instructions: Pelvic rest for 6 weeks. Discharge Attestations DIRECTOR BIOSTATISTICS Time Spent in Discharge Care*: less than 30 min Status at Discharge: Cognitive status at discharge: cognitively intact , Behavioral status at discharge: cooperative , Coding Level of Care Code Acute Code for Chg Fwd Diagnoses Spontaneous vaginal delivery O80 History of pulmonary embolism Z86.711
[2024-10-26 12:00] VITALS: BP 128/72; PULSE 80; TEMP 36.6
--- NOTE | 2024-10-26 12:19 | PC.NURSE ---
pt refused MMR vaccine
[2024-10-26 12:25] VITALS: BP 128/72; PULSE 80; TEMP 36.6; O2SAT 98
== END 2024-10-26 12:15 | disposition home or self-care (01) | DRG 807 ==
LOC: OPOB 10:29 → OBGYN 10:29
PROVIDERS: Admitting Provider Family Medicine; Family Provider Family Medicine; PCP Nurse Practitioner Family; Visit Provider Family Medicine
DX: O70.0 First degree perineal laceration during delivery (principal); Z37.0 Single live birth; O99.824 Streptococcus B carrier state complicating childbirth; O99.02 Anemia complicating childbirth; D50.9 Iron deficiency anemia, unspecified; Z3A.38 38 weeks gestation of pregnancy; Z86.711 Personal history of pulmonary embolism; Z88.0 Allergy status to penicillin; Z87.59 Personal history of other complications of pregnancy, childbirth and the puerperium
CPT/HCPCS: 36415; 51702; 59025; 59409; 85025; 85027; 86850; 86900; 96372; 99211; J0690; J1650; J2590; J2795; J7030; J7121; J9999

== ENCOUNTER → 2025-01-01 08:27 | Outpatient (BNVA) | payer BC, MEDICAID, SELFPAY | PROVIDERS: Family Provider Family Medicine; PCP Nurse Practitioner Family; Referring Provider Family Medicine; Visit Provider Nurse Practitioner Women's Health | DX: N91.2 Amenorrhea, unspecified (principal); Z30.9 Encounter for contraceptive management, unspecified | CPT/HCPCS: 81025; 84702 ==

== ENCOUNTER → 2025-03-10 13:21 | Outpatient (BNVA) | payer BC, MEDICAID, SELFPAY | PROVIDERS: Family Provider Family Medicine; PCP Nurse Practitioner Family; Visit Provider Nurse Practitioner Family | DX: R10.32 Left lower quadrant pain (principal) | CPT/HCPCS: 80053; 82607; 84443; 85025 ==

== ENCOUNTER 2025-03-14 08:42 | Outpatient (CLI) | payer BC, MEDICAID, SELFPAY ==
--- NOTE | 2025-03-14 09:30 | CT_ITS ---
WS: [id number] CT ABDOMEN AND PELVIS WITH CONTRAST HISTORY: R10.32 - Left lower quadrant pain TECHNIQUE: Imaging performed of the abdomen and pelvis with IV contrast. Single phase imaging of the abdomen. Coronal and sagittal reformats are submitted. All CT scans at [facility] use at least one of these dose optimization techniques: automated exposure control; mA and/or kV adjustment per patient size (includes targeted exams where dose is matched to clinical indication); or iterative reconstruction. IV CONTRAST: Omnipaque 350; 100 mL IV. Oral contrast: Yes. DLP: 261.96 mGy.cm COMPARISON: 05/11/2023 Lower thorax: Lung bases are clear. Heart is normal size. No hiatal hernia. Liver/biliary system: Normal size liver. Focal fatty sparing along the falciform ligament. The remaining liver is negative. Normal portal vein. Gallbladder: Normal. No gallstones or wall thickening. No pericholecystic fluid. Pancreas: Normal size pancreas and pancreatic duct. No adjacent inflammation. Spleen: Normal size spleen. No mass or infarct. Adrenal glands: Normal. Right kidney: Normal. Left kidney: Normal. Aorta: Normal. Lymphadenopathy: None. Free fluid: Small amount in the pelvis. GI tract: No obstruction. Stomach and small bowel are normal. Prior appendectomy. There is mild diffuse constipation. No colitis or wall thickening. No obstructive pattern. No diverticular disease. Increasing fecal material in the pelvis. Sigmoid is being but displaced to the RIGHT by the enlarged uterus. Abdominal wall: Unremarkable abdominal wall. No hernia. Pelvis: Mildly enlarged heterogeneous slightly retroverted uterus. There is increased fluid along the endometrial canal. There is decreased attenuation with limited enhancement involving the lower endocervical region. Some of these changes may be related to the recent . The low-attenuation at the endocervical region should be reevaluated further. There is a very small amount of free fluid in the pelvis. Negative urinary bladder. Bones: Unremarkable. CT/CT abdomen pelvis w con* [id number] IMPRESSION: 1. No GI tract obstruction or colitis. 2. Prior appendectomy. 3. Enlarged uterus with fluid-filled endometrium and decreased attenuation wit h thickening in the endocervical region. Some of these changes may be related t o the recent state. Recommend evaluation by Pap smear. Transvaginal pelvic ultrasound should be considered also to evaluate the endocervical change s and fluid in the endometrium. 4. Small amount of free fluid in the cul-de-sac is physiologic in amount.
[2025-03-14] MEDS: iohexol 350 mg/mL 500 mL Btl (per mL) IV (09:45)
[2025-03-14] MEDS: iohexol 350 mg/mL 500 mL Btl (per mL) PO (09:46)
== END 2025-03-14 08:43 | disposition home or self-care (01) ==
LOC: RAD 08:43
PROVIDERS: Family Provider Family Medicine; PCP Nurse Practitioner Family; Visit Provider Nurse Practitioner Family
DX: R10.32 Left lower quadrant pain (principal); N85.2 Hypertrophy of uterus
CPT/HCPCS: 74177

== ENCOUNTER 2025-04-15 07:25 | Day surgery (SDC) | payer BC, MEDICAID, SELFPAY ==
[2025-04-15 07:43] VITALS: BP 101/74; PULSE 115; RESP 18; TEMP 36.3; O2SAT 98; BMI 21.0
[2025-04-15 07:53] LABS: OR HCG Qualitative Urine Negative (Negative)
--- NOTE | 2025-04-15 08:05 | W.PM.OPSFHP ---
Same Day Surgery H&P Indication for Procedure/HPI DATE OF PROCEDURE: April 15, 2025 CHIEF COMPLAINT/INDICATIONFOR SURGICAL PROCEDURE: hematochezia PREOP DIAGNOSIS: hematochezia PLANNED PROCEDURE: Operation Date: 04/15/25 08:15 Proposed Procedures p Colonoscopy 82016 G0105 K92.1(Not Applicable) - Dillon Brink MD Medications/Allergies* Allergies/Adverse Reactions Allergy/AdvReac Type Severity Reaction Status Date / Time blue dye Allergy ALGY-Hives Verified 04/09/25 11:34 brompheniramine (From Allergy ALGY-Rash Verified 04/09/25 11:34 Dimetapp (brompheniramine-PPA)) loratadine Allergy rash Verified 04/09/25 11:34 Penicillins Allergy rash--has Verified 04/09/25 11:34 never taken Keflex phenylpropanolamine (From Allergy ALGY-Rash Verified 04/09/25 11:34 Dimetapp (brompheniramine-PPA)) red dye Allergy ALGY-Hives Verified 04/09/25 11:34 yellow dye Allergy ALGY-Hives Verified 04/09/25 11:34 Current Medications: Generic Name Dose Route Start Last Admin Trade Name Freq PRN Reason Stop Dose Admin Sodium Chloride 1,000 mls @ 15 mls/hr 04/15/25 07:29 04/15/25 07:52 Sodium Chloride 0.9% IV 04/16/25 07:28 15 mls/hr .Q24H PRN Administration COLONOSCOPY FLUIDS Pertinent History/Comorbid Conditions* Medical History (Updated 03/14/25 @ 10:54 by Dillon Brink MD) Bicornuate uterus Miscarriage No pertinent past medical history Denies diabetes, asthma, hypertension, seizures, DVT/PE PCP: Dr. Abdi Irritable bowel syndrome (IBS) (~2018) constipation--not on any medication controlled with diet Iron deficiency anemia was placed on iron during her --delivered August; stopped Surgical History (Updated 10/29/21 @ 15:24 by Ady Brandon MD) S/P laparoscopic appendectomy (11/13/20) 10/2020--laparoscopic procedure performed by Dr. Eastman at [facility] – [place] Family History (Updated 10/27/21 @ 10:31 by Laura Payan RN) Diabetes Grandmother maternal Grandfather maternal Denies family history of Colon cancer Ovarian cancer Heart disease Hyperlipidemia Breast cancer Thyroid disease Stroke Social History Smoking and tobacco/nicotine status: never used tobacco/nicotine Second hand smoke exposure: No Alcohol intake: never Substance/Drug Use: never Lives independently: No Household members: family Marital status: Life Partner Number of children: 1 Current occupational status: employed Do you think of yourself as: Straight/Heterosexual Current gender identity: Female Special carlos needs: No Pertinent Exam Findings alert, oriented x 3, clear to auscultation bilaterally, regular rate & rhythm and procedure specific exam findings abdomen soft, nt, nd Recommendations Risks and benefits of procedure reviewed and Patient/family agree to proceed Surgery/Procedure today Coding Level of Care Code Acute Code for Chg Brooke
--- NOTE | 2025-04-15 08:12 | ANES.PREANE2 ---
Pre-Anesthetic Assessment Height/Weight: Height 1.57 m Weight 52.163 kg Temp Pulse Resp BP Pulse Ox O2 Del Method 97.3 F L 115 H 18 101/74 98 Room Air 04/15/25 07:43 04/15/25 07:43 04/15/25 07:43 04/15/25 07:43 04/15/25 07:43 04/15/25 07:43 Preop Diagnosis: hematochezia Operation Date: 04/15/25 08:15 Proposed Procedures p Colonoscopy 97771 G0105 K92.1(Not Applicable) - Dillon Brink MD Was Beta Kar taken within 24 hours: N/A Was Clonidine taken within 24 hours: N/A Last intake: Intake Last Liquid Date 04/14/25 Last Liquid Time 23:00 Last Solid Date 04/13/25 Last Solid Time 18:00 Last Intake: 08:13 Social No alcohol and No tobacco Exam alert and oriented x 3 Airway Submandibular: within normal limits Cervical ROM: within normal limits Mallampati: Class I Dentition: full History/ROS No significant history except as noted Pulmonary None reported CV/HEM None reported None reported Hepatic None reported GI None reported Metabolic None reported Musc/skel None reported Neuropsych None reported Anesthetic Plan ASA status: 1 Anesthesia: Anesthesia Evaluation Risk of > 500 ml blood loss (7ml/kg in children): No Medications/Allergies Home Medications ?Medication ?Instructions ?Recorded ?Confirmed ?Last Taken ?Type etonogestrel 0.12 mg-ethinyl 1 vag ring vaginal .3 weeks #3 ea 03/19/25 04/09/25 04/09/25 Rx estradiol 0.015 mg/24 hr vaginal ring (NuvaRing) ondansetron 8 mg disintegrating 8 mg PO Q8H PRN nausea and 04/09/25 04/14/25 Unknown Rx tablet vomiting #3 tabs Allergies Allergy/AdvReac Type Severity Reaction Status Date / Time blue dye Allergy ALGY-Hives Verified 04/09/25 11:34 brompheniramine (From Allergy ALGY-Rash Verified 04/09/25 11:34 Dimetapp (brompheniramine-PPA)) loratadine Allergy rash Verified 04/09/25 11:34 Penicillins Allergy rash--has Verified 04/09/25 11:34 never taken Keflex phenylpropanolamine (From Allergy ALGY-Rash Verified 04/09/25 11:34 Dimetapp (brompheniramine-PPA)) red dye Allergy ALGY-Hives Verified 04/09/25 11:34 yellow dye Allergy ALGY-Hives Verified 04/09/25 11:34 Current Medications Generic Name Dose Route Start Last Admin Trade Name Freq PRN Reason Stop Dose Admin Sodium Chloride 1,000 mls @ 15 mls/hr 04/15/25 07:29 04/15/25 07:52 Sodium Chloride 0.9% IV 04/16/25 07:28 15 mls/hr .Q24H PRN Administration COLONOSCOPY FLUIDS PFSH Anesthesia Medical History (Updated 03/14/25 @ 10:54 by Dillon Brink MD) Bicornuate uterus Miscarriage No pertinent past medical history Denies diabetes, asthma, hypertension, seizures, DVT/PE PCP: Dr. Abdi Irritable bowel syndrome (IBS) (~2018) constipation--not on any medication controlled with diet Iron deficiency anemia was placed on iron during her --delivered August; stopped Surgical History S/P laparoscopic appendectomy (11/13/20) 10/2020--laparoscopic procedure performed by Dr. Eastman at [facility] [place] Family History Grandmother Diabetes maternal Grandfather Diabetes maternal Denies family history of Colon cancer Ovarian cancer Heart disease Hyperlipidemia Breast cancer Thyroid disease Stroke Social History Smoking and tobacco/nicotine status: never used tobacco/nicotine Second hand smoke exposure: No Alcohol intake: never Substance/Drug Use: never Lives independently: No Household members: family Marital status: Life Partner Number of children: 1 Current occupational status: employed Do you think of yourself as: Straight/Heterosexual Current gender identity: Female Special carlos needs: No Data Anesthesia Cardiac Studies: Echocardiogram 06/14/23 Holter Monitor 06/21/23
--- NOTE | 2025-04-15 08:33 | SUR.OPER ---
Cecum time 0835
[2025-04-15 08:36] VITALS: BP 99/59; PULSE 89; RESP 16; TEMP 36.7; O2SAT 100
[2025-04-15 08:47] VITALS: BP 104/66; PULSE 93; RESP 16; O2SAT 100
[2025-04-15 08:58] VITALS: BP 107/88; PULSE 88; RESP 16; O2SAT 100
--- NOTE | 2025-04-15 09:15 | ANE.PACU2 ---
Inpatient post-anesthesia follow up: Airway intact: Yes Vital signs: Temperature 98.1 F Pulse Rate 88 Respiratory Rate 16 Blood Pressure 107/88 Pulse Oximetry 100 Oxygen Delivery Me thod Room Air Oxygen Flow Rate 6 Fraction of Inspir ed Oxygen Hydration adequate: Yes Nausea and vomiting: No Pain level: 1 Mental status: Baseline
== END 2025-04-15 09:14 | disposition home or self-care (01) ==
PROVIDERS: Anesthesiology; Family Provider Family Medicine; PCP Nurse Practitioner Family; Visit Provider Student in an Organized Health Care Education/Training Program
PROC: 0DJD8ZZ Inspection of Lower Intestinal Tract, Via Natural or Artificial Opening Endoscopic (ICD-10-PCS; CPT 45378; principal; 2025-04-15 08:15)
DX: K92.1 Melena (principal); D50.9 Iron deficiency anemia, unspecified
CPT/HCPCS: 45378; 81025; J2704; J7030

== ENCOUNTER → 2025-04-17 11:14 | Outpatient (BNVA) | payer BC, MEDICAID, SELFPAY | PROVIDERS: Family Provider Family Medicine; PCP Nurse Practitioner Family; Visit Provider Nurse Practitioner Family | DX: R11.0 Nausea (principal); R11.2 Nausea with vomiting, unspecified | CPT/HCPCS: 80053; 81003; 81025; 85025; 86003; 86008; 87086 ==

== ENCOUNTER 2025-05-21 16:13 | Outpatient (CLI) | payer BC, MEDICAID, SELFPAY ==
--- NOTE | 2025-05-21 16:19 | US_ITS ---
WS: [id number] US transvaginal [id number] HISTORY: ENLARGED UTERUS COMPARISON: CT 03/14/2025 Uterus: 7.3 cm x 3.6 cm x 3.1 cm. Normal size retroverted uterus. Prominent peripheral veins can often noted with post state. No fibroid identified. Endometrium: 0.3 cm. Normal. Previously described endometrial thickening and heterogeneity on 03/14/2025 has completely resolved. Right ovary: 3.5 cm x 2.1 cm x 2.2 cm. Normal size and vascularity, no cystic or solid masses. Left ovary: 2.7 cm x 2.6 cm x 1.4 cm. Normal size and vascularity, no cystic or solid masses. Physiologic amount of free fluid. US/US transvaginal [id number] IMPRESSION: Normal transvaginal pelvic ultrasound.
== END 2025-05-21 16:14 | disposition home or self-care (01) ==
LOC: RAD 16:14
PROVIDERS: Family Provider Family Medicine; PCP Nurse Practitioner Family; Visit Provider Family Medicine
DX: N85.2 Hypertrophy of uterus (principal)
CPT/HCPCS: 76830

== ENCOUNTER → 2025-07-03 15:44 | Outpatient (BNVA) | payer BC, MEDICAID, SELFPAY | PROVIDERS: Family Provider Family Medicine; PCP Nurse Practitioner Family; Visit Provider Nurse Practitioner Family | DX: N39.0 Urinary tract infection, site not specified (principal) | CPT/HCPCS: 81000 ==